=== PATIENT | female | born 1965 | race Caucasian/White ===

== ENCOUNTER → 2023-11-30 07:58 | Outpatient (REF) | payer OTHER, SELFPAY | LOC: HWRAD 07:58 | PROVIDERS: ATTENDING PHYSICIAN Internal Medicine | DX: Z13.820 Encounter for screening for osteoporosis (principal) | CPT/HCPCS: 77080 ==

== ENCOUNTER → 2024-01-19 07:37 | Outpatient (REF) | payer OTHER, SELFPAY | LOC: HWRAD 07:37 | PROVIDERS: ATTENDING PHYSICIAN Specialist; FAMILY PHYSICIAN Internal Medicine | DX: R14.0 Abdominal distension (gaseous) (principal); K58.1 Irritable bowel syndrome with constipation | CPT/HCPCS: 74177; Q9967 ==

== ENCOUNTER → 2024-06-14 16:29 | Outpatient (REF) | payer OTHER, SELFPAY | LOC: HWWDC 16:29 | PROVIDERS: ATTENDING PHYSICIAN Obstetrics & Gynecology Gynecology; FAMILY PHYSICIAN Internal Medicine | DX: Z12.31 Encounter for screening mammogram for malignant neoplasm of breast (principal) | CPT/HCPCS: 77063; 77067 ==

== ENCOUNTER → 2024-06-21 10:17 | Outpatient (REF) | payer OTHER, SELFPAY | LOC: WDC 10:17 | PROVIDERS: ATTENDING PHYSICIAN Obstetrics & Gynecology Gynecology; FAMILY PHYSICIAN Internal Medicine | DX: R92.8 Other abnormal and inconclusive findings on diagnostic imaging of breast (principal) | CPT/HCPCS: 76642 ==

== ENCOUNTER → 2024-08-26 07:57 | Outpatient (REF) | payer OTHER, SELFPAY | LOC: WDC 07:57 | PROVIDERS: ATTENDING PHYSICIAN Obstetrics & Gynecology Gynecology; FAMILY PHYSICIAN Internal Medicine | DX: R92.2 Inconclusive mammogram (principal) | CPT/HCPCS: 76641 ==

== ENCOUNTER → 2024-11-24 07:15 | Outpatient (REF) | payer OTHER, SELFPAY | LOC: RAD 07:15 | PROVIDERS: ATTENDING PHYSICIAN Specialist | DX: K59.04 Chronic idiopathic constipation (principal) | CPT/HCPCS: 74270 ==

== ENCOUNTER 2025-01-23 19:00 | Outpatient (RCR) | payer OTHER, SELFPAY | END 2025-01-23 23:59 | disposition home or self-care (01) | LOC: RPT 19:00 | PROVIDERS: ATTENDING PHYSICIAN Surgery; FAMILY PHYSICIAN Internal Medicine | DX: N81.6 Rectocele (principal); K59.4 Anal spasm; Z73.6 Limitation of activities due to disability; K58.9 Irritable bowel syndrome, unspecified | CPT/HCPCS: 97110; 97112; 97140; 97162; 97530 ==

== ENCOUNTER 2025-02-15 17:12 | Outpatient (RCR) | payer OTHER, SELFPAY | END 2025-02-15 23:59 | disposition home or self-care (01) | LOC: RPT 17:12 | PROVIDERS: ATTENDING PHYSICIAN Surgery; FAMILY PHYSICIAN Internal Medicine | DX: N81.6 Rectocele (principal); K59.4 Anal spasm; Z73.6 Limitation of activities due to disability; K58.9 Irritable bowel syndrome, unspecified | CPT/HCPCS: 97014; 97112; 97140; 97530 ==

== ENCOUNTER → 2025-02-27 07:44 | Outpatient (REF) | payer OTHER, SELFPAY | LOC: WDC 07:44 | PROVIDERS: ATTENDING PHYSICIAN Obstetrics & Gynecology Gynecology; FAMILY PHYSICIAN Internal Medicine | DX: R92.8 Other abnormal and inconclusive findings on diagnostic imaging of breast (principal) | CPT/HCPCS: 76642 ==

== ENCOUNTER 2025-04-19 17:14 | Outpatient (RCR) | payer OTHER, SELFPAY | END 2025-04-19 23:59 | disposition home or self-care (01) | LOC: RPT 17:14 | PROVIDERS: ATTENDING PHYSICIAN Surgery; FAMILY PHYSICIAN Internal Medicine | DX: N81.6 Rectocele (principal); K59.4 Anal spasm; Z73.6 Limitation of activities due to disability; K58.9 Irritable bowel syndrome, unspecified | CPT/HCPCS: 97014; 97110; 97112; 97140; 97164; 97530 ==

== ENCOUNTER 2025-05-22 17:05 | Outpatient (RCR) | payer OTHER, SELFPAY | END 2025-05-22 23:59 | disposition home or self-care (01) | LOC: RPT 17:05 | PROVIDERS: ATTENDING PHYSICIAN Surgery; FAMILY PHYSICIAN Internal Medicine | DX: N81.6 Rectocele (principal); K59.4 Anal spasm; Z73.6 Limitation of activities due to disability; K58.9 Irritable bowel syndrome, unspecified | CPT/HCPCS: 97014; 97110; 97112; 97140; 97530 ==

== ENCOUNTER → 2025-06-15 16:28 | Outpatient (REF) | payer OTHER, SELFPAY | LOC: WDC 16:28 | PROVIDERS: ATTENDING PHYSICIAN Obstetrics & Gynecology Gynecology; FAMILY PHYSICIAN Internal Medicine | DX: Z12.31 Encounter for screening mammogram for malignant neoplasm of breast (principal) | CPT/HCPCS: 77063; 77067 ==

== ENCOUNTER 2025-06-19 17:16 | Outpatient (RCR) | payer OTHER, SELFPAY | END 2025-06-19 23:59 | disposition home or self-care (01) | LOC: RPT 17:16 | PROVIDERS: ATTENDING PHYSICIAN Surgery; FAMILY PHYSICIAN Internal Medicine | DX: N81.6 Rectocele (principal); K59.4 Anal spasm; Z73.6 Limitation of activities due to disability; K58.9 Irritable bowel syndrome, unspecified | CPT/HCPCS: 97014; 97112; 97140; 97530 ==

== ENCOUNTER 2025-07-19 17:16 | Outpatient (RCR) | payer OTHER, SELFPAY | END 2025-07-19 23:59 | disposition home or self-care (01) | LOC: RPT 17:16 | PROVIDERS: ATTENDING PHYSICIAN Surgery; FAMILY PHYSICIAN Internal Medicine | DX: N81.6 Rectocele (principal); K59.4 Anal spasm; Z73.6 Limitation of activities due to disability; K58.9 Irritable bowel syndrome, unspecified | CPT/HCPCS: 97014; 97112; 97140; 97530 ==

== ENCOUNTER 2025-08-23 17:02 | Outpatient (RCR) | payer OTHER, SELFPAY | END 2025-08-23 23:59 | disposition home or self-care (01) | LOC: RPT 17:02 | PROVIDERS: ATTENDING PHYSICIAN Surgery; FAMILY PHYSICIAN Internal Medicine | DX: N81.6 Rectocele (principal); K59.4 Anal spasm; Z73.6 Limitation of activities due to disability; K58.9 Irritable bowel syndrome, unspecified | CPT/HCPCS: 97014; 97110; 97112; 97140; 97530 ==

== ENCOUNTER → 2025-08-28 07:38 | Outpatient (REF) | payer OTHER, SELFPAY | LOC: WDC 07:38 | PROVIDERS: ATTENDING PHYSICIAN Obstetrics & Gynecology Gynecology; FAMILY PHYSICIAN Internal Medicine | DX: R92.2 Inconclusive mammogram (principal) | CPT/HCPCS: 76641 ==

== ENCOUNTER 2025-09-11 14:33 | Outpatient (RCR) | payer OTHER, SELFPAY | END 2025-09-11 23:59 | disposition home or self-care (01) | LOC: RPT 14:33 | PROVIDERS: ATTENDING PHYSICIAN Surgery; FAMILY PHYSICIAN Internal Medicine | DX: N81.6 Rectocele (principal); K59.4 Anal spasm; Z73.6 Limitation of activities due to disability; K58.9 Irritable bowel syndrome, unspecified | CPT/HCPCS: 97014; 97112; 97140; 97530 ==

== ENCOUNTER 2025-09-27 17:05 | Outpatient (RCR) | payer OTHER, SELFPAY | END 2025-09-27 23:59 | disposition home or self-care (01) | LOC: RPT 17:05 | PROVIDERS: ATTENDING PHYSICIAN Surgery; FAMILY PHYSICIAN Internal Medicine | DX: N81.6 Rectocele (principal); K59.4 Anal spasm; Z73.6 Limitation of activities due to disability; K58.9 Irritable bowel syndrome, unspecified | CPT/HCPCS: 97014; 97112; 97140; 97530 ==